=== PATIENT | female | born 1970 | race Caucasian/White ===

== ENCOUNTER 2020-03-24 09:42 | Outpatient (CLI) | payer BC, SELFPAY ==
--- NOTE | 2020-03-24 11:30 | NEURO_ITS ---
Patient Number: [id number] Impression: # Complains of numbness of hands and right elbow pain. # Severe right Carpal Tunnel Syndrome. # Moderate left Carpal Tunnel Syndrome. # Mild right ulnar neuropathy across the elbow. # Normal needle/EMG exam. Nerve Conduction Studies Anti Sensory Summary Table Stim Site NR Peak (ms) P-T Amp (?V) Site1 Site2 Delta-P (ms) Dist (cm) Manpreet (m/s) Left Median Anti Sensory (2-3nd Digit) Wrist 4.1 26.5 Wrist 2-3nd Digit 4.1 14.0 34 Wrist 4.6 31.2 Wrist 2-3nd Digit 4.1 14.0 34 Right Median Anti Sensory (2-3nd Digit) Wrist 6.0 19.5 Wrist 2-3nd Digit 6.0 14.0 23 Wrist 6.0 23.8 Wrist 2-3nd Digit 6.0 14.0 23 Left Radial Anti Sensory (Base 1st Digit) Wrist 2.1 24.7 Wrist Base 1st Digit 2.1 0.0 Right Radial Anti Sensory (Base 1st Digit) Wrist 2.1 28.2 Wrist Base 1st Digit 2.1 0.0 Left Ulnar Anti Sensory (5th Digit) Wrist 2.7 73.3 Wrist 5th Digit 2.7 14.0 52 Right Ulnar Anti Sensory (5th Digit) Wrist 2.4 30.0 Wrist 5th Digit 2.4 14.0 58 Motor Summary Table Stim Site NR Onset (ms) O-P Amp (mV) Site1 Site2 Delta-0 (ms) Dist (cm) Manpreet (m/s) Left Median Motor (Abd Poll Brev) Wrist 4.3 6.0 Elbow Wrist 5.2 28.0 54 Elbow 9.5 5.2 Right Median Motor (Abd Poll Brev) Wrist 7.0 3.9 Elbow Wrist 5.0 29.0 58 Elbow 12.0 3.5 Left Ulnar Motor (Abd Dig Minimi) Wrist 2.7 7.4 A Elbow Wrist 4.6 29.0 63 A Elbow 7.3 6.7 Right Ulnar Motor (Abd Dig Minimi) Wrist 2.5 6.3 A Elbow Wrist 5.1 28.0 55 A Elbow 7.6 5.5 F Wave Studies NR F-Lat (ms) L-R F-Lat (ms) Left Median (Mrkrs) (Abd Poll Brev) 28.19 3.80 Right Median (Mrkrs) (Abd Poll Brev) 31.99 3.80 Left Ulnar (Mrkrs) (Abd Dig Min) 27.54 0.00 Right Ulnar (Mrkrs) (Abd Dig Min) 27.54 0.00 EMG Side Muscle Nerve Root Ins Act Fibs Amp Dur Recrt Comment Right 1stDorInt Ulnar C8-T1 Nml Nml Nml Nml Nml Right Ext Indicis Radial (Post Int) C7-8 Nml Nml Nml Nml Nml Right Ext Digitorum Radial (Post Int) C7-8 Nml Nml Nml Nml Nml Right BrachioRad Radial C5-6 Nml Nml Nml Nml Nml Right PronatorTeres Median C6-7 Nml Nml Nml Nml Nml Right Abd Poll Brev Median C8-T1 Nml Nml Nml Nml Nml Left 1stDorInt Ulnar C8-T1 Nml Nml Nml Nml Nml Left Ext Indicis Radial (Post Int) C7-8 Nml Nml Nml Nml Nml Left Ext Digitorum Radial (Post Int) C7-8 Nml Nml Nml Nml Nml Left BrachioRad Radial C5-6 Nml Nml Nml Nml Nml Left PronatorTeres Median C6-7 Nml Nml Nml Nml Nml Left Abd Poll Brev Median C8-T1 Nml Nml Nml Nml Nml MTDD
== END 2020-03-24 09:43 | disposition home or self-care (01) ==
PROVIDERS: PCP Family Medicine; Visit Provider Physician Assistant
DX: R20.2 Paresthesia of skin (principal); G56.03 Carpal tunnel syndrome, bilateral upper limbs; G56.21 Lesion of ulnar nerve, right upper limb
CPT/HCPCS: 95886; 95911

== ENCOUNTER 2020-05-24 07:28 | Outpatient (CLI) | payer BC, SELFPAY ==
--- NOTE | 2020-05-24 | ECG_ITS ---
Measurements Intervals [place] Rate: 59 P: 70 VT: 177 QRS: 12 QRSD: 77 T: 14 QT: 425 QTc: 423 Interpretive Statements SINUS BRADYCARDIA RSR' IN V1 OR V2, PROBABLY NORMAL VARIANT LOW QRS VOLTAGE IN LIMB LEADS DELAYED PRECORDIAL R/S TRANSITION BORDERLINE ST-T WAVE ABNORMALITY- ANTEROLAT/INF LEADS BASELINE ARTIFACT- V4-V6 BORDERLINE ECG Electronically Signed On 05-24-2020 8:37:09 CDT by Turner Quijano D.O.
== END 2020-05-24 07:29 | disposition home or self-care (01) ==
LOC: ANHCARD 07:31
PROVIDERS: PCP Family Medicine; Visit Provider Anesthesiology
DX: I47.1 Supraventricular tachycardia (principal); R94.31 Abnormal electrocardiogram [ECG] [EKG]
CPT/HCPCS: 93005

== ENCOUNTER 2020-05-26 00:36 | Outpatient (CLI) | payer BC, SELFPAY ==
[2020-05-26 18:07] LABS: SARS-CoV-2 RNA PCR Negative
== END 2020-05-26 00:37 | disposition home or self-care (01) ==
LOC: ANHSURGERY 00:37
PROVIDERS: PCP Family Medicine; Visit Provider Orthopaedic Surgery
DX: Z01.812 Encounter for preprocedural laboratory examination (principal); Z11.59 Encounter for screening for other viral diseases
CPT/HCPCS: 87635; C9803; U0003

== ENCOUNTER 2020-05-28 01:19 | Day surgery (SDC) | payer BC, SELFPAY ==
[2020-05-17 16:45] VITALS: BMI 27.8
--- NOTE | 2020-05-27 12:46 | WPDANESEPPF ---
Anes - Initial Pre Proc Eval Procedure: Operation Date: 05/28/20 08:15 Proposed Procedures p Right Carpal Tunnel Release, Right Cubital Decompression - Sukhwinder Stanley MD Date/Time: 05/27/20 12:46 Surgeon: Sukhwinder Stanley MD Pre Op Diagnosis: Right Carpal Tunnel Syndrome, ulnar neuropathy Patient Data Age: 49 Gender: F Height: 5 ft 5 in Weight: 76 kg Allergies Allergy/AdvReac Type Severity Reaction Status Date / Time azithromycin Allergy Severe Swelling Verified 05/28/20 06:48 mold Allergy Unknown Unknown Verified 05/28/20 06:48 thyme Allergy Unknown Unknown Verified 05/28/20 06:48 COCONUT Allergy Severe Swelling, Uncoded 05/28/20 06:48 HIVES THYME (THE SPICE) Allergy Unknown HIVES, Uncoded 05/28/20 06:48 RASH, NAUSEA, DIARRHEA Home Medications Medication Instructions Recorded Confirmed Type sertraline 50 mg tablet 75 mg PO DAILY #45 tablet 03/10/20 05/28/20 Rx fluticasone propionate 110 1 puff INHALATION Q12H #12 gm 05/18/20 05/28/20 Rx mcg/actuation HFA aerosol inhaler Patient hx anesthesia problems: none Family hx anesthesia problems: none PMFSH Social History Social History Smoking status: Never smoker Alcohol intake: never Living arrangements: alone Spiritual care concerns: No Anes - Eval Final PreProcedure Day of Procedure 05/27/20 12:46 Patient weight: normal Heart: regular rate and rhythm Lungs: clear to auscultation Airway: Mallampati scale class III Neurological: alert and oriented Last oral intake: >/= 8 hours ASA classification: II Emergent: no Anesthetic plan: proceed Anesthesia type and monitoring: general LMA and standard monitoring Informed Consent: The patient's anesthetic plan and its attendant risks and benefits were discussed with the patient/family/POA. Questions were solicited and answers provided to the satisfaction of the patient/family/POA.
[2020-05-28] VITALS (12 sets, daily range): BP systolic 93–137; BP diastolic 51–80; PULSE 57–74; RESP 9–16; TEMP 36.1–36.9; O2SAT 97–100
[2020-05-28] MEDS: LACTATED RINGERS 1,000 ML 30 ML IV CONT ×2 (07:05→09:00)
[2020-05-28] MEDS: KETOROLAC 15 MG/ML VIAL (*BKC) IV PUSH (07:06)
--- NOTE | 2020-05-28 07:06 | WPDHPUPDATE1 ---
History and Physical Update Update Date/Time: 05/28/20 07:06 History and Physical has been reviewed, including an updated exam of the patient. There are NO changes in the patient's condition. Risks, benefits, and alternatives have been discussed and questions answered. Patient agrees to proceed with procedure.
[2020-05-28] MEDS: ACETAMINOPHEN 500 MG TABLET 1000 MG PO (07:07)
[2020-05-28] MEDS: ONDANSETRON INJ 4 MG/2 ML VIAL IV PUSH (07:28)
[2020-05-28] MEDS: SCOPOLAMINE 1.5 MG PATCH TRANSDERM (07:28)
[2020-05-28] MEDS: BUPIVACAINE/EPINEPHRINE 0.5% 10 ML VIAL 20 ML INFILTRATE (07:44)
[2020-05-28] MEDS: ceFAZolin 2 GM/D5W 50 ML 2 GM/50 ML BAG IVPB (07:55)
--- NOTE | 2020-05-28 09:21 | PM.PROC ---
Procedure Note - Detailed Date of procedure: 05/28/20 Pre-op diagnosis: Right Carpal Tunnel Syndrome, ulnar neuropathy Post-op diagnosis: same Procedure performed: 1. Carpal Tunnel Release 2. Ulnar nerve decompression at the elbow. Anesthesia: MAC Surgeon: Sukhwinder Stanley MD Estimated blood loss (mL): 1 Complications: None Condition: stable Findings: Operative details. After sedation was administer, the hand was prepped and draped in the usual sterile fashion. The proposed incision was marked using typical anatomic landmarks. 4ML 0.5% Marcaine with epinephrine was injected along the incision line and at the distal forearm. The limb was exsanguinated and the tourniquet inflated to 250 millimeters of mercury. A longitudinal incision was taken sharply. Dissection was brought down to the transverse carpal ligament. Under direct vision the ligament was incised sharply. The proximal release was carried out with dissection scissors. The contents of the carpal canal were protected with a [place] elevator. The transverse carpal ligament was confirmed to be widely patent. Attention was turned to the elbow. A longitudinal incision was created posterior to the medial epicondyle. Careful dissection was brought down to the ulnar nerve. It was identified proximally and dissected to the cubital tunnel retinaculum. Careful dissection released the cubital tunnel retinaculum. The dissection was carried out to the flexor carpi the palmaris. The 1st motor branch was carefully identified and protected. Attention was turned proximally in the nerve was released proximal to the intermuscular septum. The arm was flexed and the nerve was assessed. The nerve was stable. The tourniquet was released to assure that there was no significant bleeding. Meticulous hemostasis was maintained. The subcutaneous tissues were closed with 2-0 Vicryl suture. The skin was closed with interrupted 3-0 Monocryl suture followed by running 4-0 Monocryl suture and Steri-Strips. Sterile dressing was applied with a soft splint at the wrist and a hard splint at the elbow. The patient was extubated and brought to the recovery room in stable condition.
== END 2020-05-28 12:40 | disposition home or self-care (01) ==
PROVIDERS: PCP Family Medicine; Visit Provider Orthopaedic Surgery
PROC: (CPT 64721; principal; 2020-05-28 08:15)
DX: G56.01 Carpal tunnel syndrome, right upper limb (principal); G56.21 Lesion of ulnar nerve, right upper limb
CPT/HCPCS: 64721; 64718; 87635; A4565; A9270; C9803; J0690; J1100; J1885; J2250; J2405; J2704; J3010; J7120; U0003

== ENCOUNTER 2021-01-28 14:48 | Outpatient (CLI) | payer BC, SELFPAY | END 2021-01-28 14:49 | disposition home or self-care (01) | LOC: ANHCOVIDVC 14:48 | PROVIDERS: PCP Family Medicine | DX: Z23 Encounter for immunization (principal) | CPT/HCPCS: 0001A; 91300 ==

== ENCOUNTER → 2021-03-23 08:32 | Outpatient (CLI) | payer BC, SELFPAY ==
[2021-03-23 20:20] LABS: SARS-CoV-2 RNA PCR Positive
== END ==
PROVIDERS: PCP Family Medicine; Visit Provider Family Medicine
DX: U07.1 COVID-19 (principal)
CPT/HCPCS: C9803; U0003; U0005

== ENCOUNTER 2022-01-12 07:32 | Outpatient (CLI) | payer OTHER, SELFPAY ==
[2022-01-12 07:50] LABS: Basophils Percent Auto 0.6 % (0.2-1.2); Eosinophils Absolute Auto 0.2 K/mm3 (0-0.3); Eosinophils Percent Auto 3.6 % (0-4.4); Hematocrit 40.8 % (37.0-47.0); Hemoglobin 13.3 g/dL (12.0-15.0); Immature Granulocyte Absolute 0.02 K/mm3 (0.00-0.031); Immature Granulocyte Percent A 0.3 % (0-0.5); Lymphocytes Absolute Auto 1.93 K/mm3 (0.9-3.2); Lymphocytes Percent Auto 28.8 % (18.3-44.2); Mean Corpuscular HGB Conc 32.6 g/dl (32-36); Mean Corpuscular Hemoglobin 28.2 pg (26-34); Mean Corpuscular Volume 86.6 fl (80-100); Mean Platelet Volume 9.4 fl (7.4-10.4); Monocytes Absolute Auto 0.5 K/mm3 (0.1-0.6); Monocytes Percent Auto 7.5 % (2.6-8.5); Neutrophils Percent Auto 59.2 % (45.5-73.1); Platelet Count Result 261 k/mm3 (150-375); Red Blood Count 4.71 M/mm3 (4.2-5.4); Red Cell Distribution Width 12.6 % (11.5-14.5); White Blood Count 6.7 K/mm3 (4.5-10.0)
[2022-01-12 07:57] LABS: Add Urine Microscopic? NO; Appearance Urine Clear (Clear); Bilirubin Urine Negative (Negative); Blood Urine Negative (Negative); Color Urine Yellow (Yellow); Glucose Urine UA Negative (Negative); Ketones Urine Negative (Negative); Leukocyte Esterase Ur Negative LEU/UL (NEGATIVE); Nitrate Urine Negative (Negative); Protein Urine Negative (Negative); Urobilinogen Urine Negative mg/dL (<2.0)
[2022-01-12 08:15] LABS: Alanine Aminotransferase 17 U/L (4-35); Albumin Level 4.2 g/dL (3.5-5.1); Alkaline Phosphatase 80 U/L (38-126); Anion Gap 5 mmol/L (8-16); Aspartate Amino Transferase 24 U/L (14-36); Bilirubin,Total 0.8 mg/dL (0.2-1.3); Blood Urea Nitrogen 14 mg/dL (7-17); Calcium 8.7 mg/dL (8.4-10.2); Carbon Dioxide 26 mmol/L (22-30); Chloride 104 mmol/L (98-107); Cholesterol 220 mg/dL (0-200); Estimated Glomerular Filt Rate > 60; Glucose 103 mg/dL (65-110); HDL Direct 79 mg/dL; Sodium 135 mmol/L (137-145); Triglycerides 109 mg/dL (<150)
[2022-01-12 08:23] LABS: Hemoglobin A1C 5.5 % (<5.7)
[2022-01-12 08:26] LABS: LDL Cholesterol Direct 104 mg/dL
== END 2022-01-12 07:33 | disposition home or self-care (01) ==
LOC: ANHLAB 07:34
PROVIDERS: PCP Family Medicine; Visit Provider Nurse Practitioner Family
DX: Z00.00 Encounter for general adult medical examination without abnormal findings (principal); E55.9 Vitamin D deficiency, unspecified; R20.0 Anesthesia of skin; R20.2 Paresthesia of skin; R73.01 Impaired fasting glucose; N39.0 Urinary tract infection, site not specified; E78.2 Mixed hyperlipidemia
CPT/HCPCS: 36415; 80053; 80061; 81003; 82306; 83036; 84443; 85025

== ENCOUNTER 2023-01-08 11:04 | Day surgery (SDC) | payer OTHER, SELFPAY ==
[2022-12-15 10:19] VITALS: BMI 29.1
[2022-12-26 10:30] VITALS: BMI 28.2
--- NOTE | 2023-01-08 07:12 | WPDANESEPPF ---
Anes - Initial Pre Proc Eval Procedure: Operation Date: 01/08/23 13:00 Proposed Procedures p Screening Colonoscopy - Nahun Cole MD Date/Time: 01/08/23 07:12 Surgeon: Nahun Cole MD Pre Op Diagnosis: Neoplasm Screening Patient Data Age: 52 Gender: F Height: 1.65 m Weight: 77 kg Allergies Allergy/AdvReac Type Severity Reaction Status Date / Time azithromycin Allergy Severe Swelling Verified 01/08/23 11:24 of Lip/Tongue/Throat mold Allergy Intermediate SINUS Verified 01/08/23 11:24 COCONUT Allergy Severe Anaphylactic Uncoded 01/08/23 11:24 Shock THYME (THE SPICE) Allergy Severe Anaphylactic Uncoded 01/08/23 11:24 Shock Home Medications Medication Instructions Recorded Confirmed Type fluticasone propionate 50 2 spray intranasal DAILY 06/13/21 01/08/23 History mcg/actuation nasal spray,suspension sertraline 50 mg tablet 50 mg PO DAILY #90 tabs 08/10/22 01/08/23 Rx albuterol sulfate 90 mcg/actuation 1 puff inhalation Q4-6H PRN 10/24/22 01/08/23 Rx aerosol inhaler shortness of breath or wheezing #8.5 grams sodium,potassium,mag sulfates 17.5 See Rx Instructions PO .COMPLEX 12/15/22 01/08/23 Rx gram-3.13 gram-1.6 gram oral soln #354 mL (Suprep Bowel Prep Kit) estradiol 2 mg tablet 2 mg PO DAILY 12/26/22 01/08/23 History sodium,potassium,mag sulfates 17.5 See Rx Instructions PO .COMPLEX 12/26/22 01/08/23 Rx gram-3.13 gram-1.6 gram oral soln #354 mL (Suprep Bowel Prep Kit) Patient hx anesthesia problems: none Family hx anesthesia problems: none Results Review: All pre-operative results and documents have been reviewed as part of the pre-operative evaluation. [facility] Past Medical History Medical History (Updated 01/08/23 @ 07:13 by Andreas Harper DO) Anxiety Asthma Bilateral carpal tunnel syndrome Bunion, right foot Endometriosis GERD (gastroesophageal reflux disease) Numbness and tingling in right hand SVT (supraventricular tachycardia) Ulnar neuropathy at elbow of right upper extremity Wellness examination Surgical History Surgical History History of hysterectomy (~2011) Family History Family History Sibling Hypertension Family history of diabetes mellitus in first degree relative Mother Carcinoma of colon Father Diabetes mellitus Social History Social History Social History: Single Smoking status: Never smoker Second hand tobacco smoke exposure: No Alcohol intake: current Substance use: never Substance use type: does not use Living arrangements: with family Occupation/Education: occupation Gender identity (if verbalized by the patient): Female Sexual Orientation (if Verbalized by the Patient): Straight or Heterosexual Spiritual care concerns: No Anes - Eval Final PreProcedure Day of Procedure 01/08/23 07:12 Patient weight: overweight Heart: regular rate and rhythm Lungs: clear to auscultation Airway: Mallampati scale class II Neurological: alert and oriented Last oral intake: >/= 8 hours ASA classification: III Emergent: no Anesthetic plan: proceed Anesthesia type and monitoring: general GIVS and standard monitoring Results Review: All pre-operative results and documents have been reviewed as part of the pre-operative evaluation. Informed Consent: The patient's anesthetic plan and its attendant risks and benefits were discussed with the patient/family/POA. Questions were solicited and answers provided to the satisfaction of the patient/family/POA.
[2023-01-08 11:31] VITALS: BP 132/76; PULSE 64; RESP 20; TEMP 36.8; O2SAT 98
--- NOTE | 2023-01-08 11:38 | PM.HPGS ---
History of Present Illness History of Present Illness Consent: Risks, benefits, and alternatives have been discussed and questions answered. Patient agrees to proceed with procedure. Chief complaint: Family history of colon cancer Narrative: Priscilla Silverman is a 52 year old female Presents for screening colonoscopy. Patient's current weight appetite and bowel movements are normal. Patient denies abdominal pain. She has had no bleeding. Family history is significant her mother had colon cancer. Review of Systems Review of Systems: Review of systems noncontributory. [facility] Past Medical History Medical History (Updated 01/08/23 @ 11:40 by Nahun Cole MD) Anxiety Asthma Bilateral carpal tunnel syndrome Bunion, right foot Endometriosis GERD (gastroesophageal reflux disease) Numbness and tingling in right hand SVT (supraventricular tachycardia) Ulnar neuropathy at elbow of right upper extremity Wellness examination Surgical History Surgical History History of hysterectomy (~2011) Family History Family History Sibling Hypertension Family history of diabetes mellitus in first degree relative Mother Carcinoma of colon Father Diabetes mellitus Social History Social History Social History: Single Smoking status: Never smoker Second hand tobacco smoke exposure: No Alcohol intake: current Substance use: never Substance use type: does not use Living arrangements: with family Occupation/Education: occupation Gender identity (if verbalized by the patient): Female Sexual Orientation (if Verbalized by the Patient): Straight or Heterosexual Spiritual care concerns: No Meds Home Medications and Allergies Home Medications Medication Instructions Recorded Confirmed Type fluticasone propionate 50 2 spray intranasal DAILY 06/13/21 01/08/23 History mcg/actuation nasal spray,suspension sertraline 50 mg tablet 50 mg PO DAILY #90 tabs 08/10/22 01/08/23 Rx albuterol sulfate 90 mcg/actuation 1 puff inhalation Q4-6H PRN 10/24/22 01/08/23 Rx aerosol inhaler shortness of breath or wheezing #8.5 grams sodium,potassium,mag sulfates 17.5 See Rx Instructions PO .COMPLEX 12/15/22 01/08/23 Rx gram-3.13 gram-1.6 gram oral soln #354 mL (Suprep Bowel Prep Kit) estradiol 2 mg tablet 2 mg PO DAILY 12/26/22 01/08/23 History sodium,potassium,mag sulfates 17.5 See Rx Instructions PO .COMPLEX 12/26/22 01/08/23 Rx gram-3.13 gram-1.6 gram oral soln #354 mL (Suprep Bowel Prep Kit) Allergies Allergy/AdvReac Type Severity Reaction Status Date / Time azithromycin Allergy Severe Swelling Verified 01/08/23 11:24 of Lip/Tongue/Throat mold Allergy Intermediate SINUS Verified 01/08/23 11:24 COCONUT Allergy Severe Anaphylactic Uncoded 01/08/23 11:24 Shock THYME (THE SPICE) Allergy Severe Anaphylactic Uncoded 01/08/23 11:24 Shock Vital Signs Vital Signs - 24 hr 01/08/23 11:31 Temperature 98.3 F Pulse Rate 64 Respiratory Rate 20 Blood Pressure 132/76 Pulse Oximetry 98 Oxygen Delivery Room Air Exam Narrative: Physical exam reveals patient to be alert. Vital signs stable. HEENT exam is unremarkable. Patient is anicteric. Lungs are clear to auscultation and percussion. Heart is without murmur or extra sounds. Abdomen bowel sounds are present soft nontender with no organomegaly. Digital external rectal exam is normal. Assessment and Plan Assessment and plan (1) Family history of colon cancer in mother: Code(s): Z80.0 - Family history of malignant neoplasm of digestive organs Status: Acute Assessment and Plan: Patient's mother had colon cancer. Plan for surveillance colonoscopy now consider this a 5 year intervals in the future.
[2023-01-08] MEDS: LACTATED RINGERS 1,000 ML 150 ML IV CONT (11:41)
[2023-01-08 12:00] VITALS: BP 136/78; PULSE 85; RESP 18; O2SAT 99
[2023-01-08 12:10] VITALS: BP 118/81; PULSE 66; RESP 17; O2SAT 99
[2023-01-08 12:20] VITALS: BP 134/81; PULSE 59; RESP 18; O2SAT 98
--- NOTE | 2023-01-08 13:25 | WPDANESPN ---
Anes - Prog Note Post-Op Date/Time: 01/08/23 13:25 Cardiovascular status: normal Respiratory status: normal Airway patency: baseline Mental status: baseline Post-Op hydration status: normal Vital Signs: Last Vital Signs Temp 36.8 C 01/08/23 11:31 Pulse 59 L 01/08/23 12:20 Resp 18 01/08/23 12:20 BP 134/81 01/08/23 12:20 Pulse Ox 98 01/08/23 12:20 O2 Del Method Room Air 01/08/23 12:20 Pain Score (VAS): 0 I/O: Intake & Output 01/07/23 01/08/23 01/08/23 23:59 07:59 15:59 Intake Total 400 Balance 400 Post-procedural complaints: none Patient Feedback: Patient satisfied with anesthetic care. Other Findings: Patient vital signs back to baseline. Patient denies nausea and vomiting. Patient's pain under control. Patient OK for discharge.
== END 2023-01-08 13:00 | disposition home or self-care (01) ==
PROVIDERS: PCP Family Medicine; Visit Provider Internal Medicine Gastroenterology
PROC: 0DJD8ZZ Inspection of Lower Intestinal Tract, Via Natural or Artificial Opening Endoscopic (ICD-10-PCS; CPT 45378; principal; 2023-01-08 13:00)
DX: Z80.0 Family history of malignant neoplasm of digestive organs (principal)
CPT/HCPCS: 45378

== ENCOUNTER 2023-05-07 07:09 | Outpatient (CLI) | payer OTHER, SELFPAY ==
[2023-05-07 07:42] LABS: Hematocrit 39.7 % (37.0-47.0); Mean Corpuscular HGB Conc 32.7 g/dl (32-36); Mean Corpuscular Hemoglobin 28.3 pg (26-34); Mean Corpuscular Volume 86.3 fl (80-100); Mean Platelet Volume 9.6 fl (7.4-10.4); Platelet Count Result 263 k/mm3 (150-375); Red Cell Distribution Width 12.3 % (11.5-14.5); White Blood Count 6.7 K/mm3 (4.5-10.0)
[2023-05-07 07:51] LABS: Appearance Urine Clear (Clear); Bacteria Urine 1+ /hpf; Bilirubin Urine Negative (Negative); Color Urine Yellow (Yellow); Glucose Urine UA Negative (Negative); Ketones Urine Negative (Negative); Leukocyte Esterase Ur Negative LEU/UL (NEGATIVE); Nitrate Urine Negative (Negative); Non Pathogenic Casts 0-2; Protein Urine Negative (Negative); RBC Urine 0-2 /hpf (0-2); Squamous Epithelial Cell Urine Few /hpf (Few); Urobilinogen Urine 0.2 mg/dL (<2.0); WBC Urine 0-5 /hpf (0-3); pH Urine 5.5 (5.0-9.0)
[2023-05-07 07:55] LABS: Alanine Aminotransferase 20 U/L (6-35); Albumin Level 4.2 g/dL (3.5-5.1); Alkaline Phosphatase 72 U/L (38-126); Anion Gap 4 mmol/L (8-16); Aspartate Amino Transferase 23 U/L (14-36); Bilirubin,Total 0.7 mg/dL (0.2-1.3); Blood Urea Nitrogen 15 mg/dL (7-17); Calcium 8.5 mg/dL (8.4-10.2); Carbon Dioxide 29 mmol/L (22-30); Chloride 105 mmol/L (98-107); Cholesterol 209 mg/dL (0-200); Estimated Glomerular Filt Rate > 60; Glucose 93 mg/dL (65-110); HDL Direct 79 mg/dL; Potassium 3.9 mmol/L (3.4-5.0); Sodium 138 mmol/L (137-145); Triglycerides 114 mg/dL (<150)
[2023-05-07 08:01] LABS: Add Urine Microscopic? YES
[2023-05-07 08:07] LABS: LDL Cholesterol Direct 97 mg/dL
[2023-05-07 08:32] LABS: Vitamin D 25 Hydroxy 29.4 ng/mL
[2023-05-07 08:33] LABS: Hemoglobin A1C 5.3 % (<5.7)
== END 2023-05-07 07:10 | disposition home or self-care (01) ==
LOC: ANHLAB 07:11
PROVIDERS: PCP Family Medicine; Visit Provider Physician Assistant
DX: Z00.00 Encounter for general adult medical examination without abnormal findings (principal); F41.1 Generalized anxiety disorder; I47.1 Supraventricular tachycardia; J45.20 Mild intermittent asthma, uncomplicated; R73.01 Impaired fasting glucose
CPT/HCPCS: 36415; 80053; 80061; 81001; 82306; 83036; 84443; 85027

== ENCOUNTER 2023-09-18 15:45 | Emergency (ER) | payer OTHER, SELFPAY ==
[2023-09-18 15:50] VITALS: BP 139/87; PULSE 64; RESP 20; TEMP 36.6; O2SAT 97
--- NOTE | 2023-09-18 15:55 | ED.URI ---
HPI - URI/Sore Throat General Chief Complaint: Upper Respiratory Infection Stated Complaint: sore throat Source: patient and RN notes reviewed History of Present Illness HPI Narrative: 52 yo F presents to urgent care with complaints of a sore throat x 3 days. Pt states she has also had some fullness in her ears and a slight cough. Denies any fevers, chills, chest pain, SOB, N/V/D. Related Data Home Medications Medication Instructions Recorded Confirmed estradiol 2 mg tablet 2 mg PO DAILY 12/26/22 09/18/23 Allergies Allergy/AdvReac Type Severity Reaction Status Date / Time azithromycin Allergy Severe Swelling Verified 09/18/23 15:59 of Lip/Tongue/Throat mold Allergy Intermediate SINUS Verified 09/18/23 15:59 COCONUT Allergy Severe Anaphylactic Uncoded 02/08/23 10:31 Shock THYME (THE SPICE) Allergy Severe Anaphylactic Uncoded 02/08/23 10:31 Shock Review of Systems Review of Systems: CONSTITUTIONAL: Denies fever, chills, or sweats. EYES: Denies visual changes, redness, or discharge. ENT: sore throat and bilateral ear fullness CARDIOVASCULAR: Denies chest pain, palpitations, or edema. RESPIRATORY: slight cough GASTROINTESTINAL: Denies abdominal pain, nausea, vomiting, or diarrhea. GENITOURINARY: Denies dysuria or hematuria. SKIN: Denies rash or itching. MUSCULOSKELETAL: Denies back pain, joint pain, or myalgia. NEUROLOGIC: Denies headache, numbness, or weakness. Pertinent positives per HPI. [facility] Past Medical History Medical History Anxiety Asthma Bilateral carpal tunnel syndrome Bunion, right foot Endometriosis GERD (gastroesophageal reflux disease) Numbness and tingling in right hand SVT (supraventricular tachycardia) Ulnar neuropathy at elbow of right upper extremity Wellness examination Surgical History Surgical History History of hysterectomy (~2011) Family History Family History Sibling Hypertension Family history of diabetes mellitus in first degree relative Mother Carcinoma of colon Father Diabetes mellitus Social History Social History Social History: Single Smoking status: Never smoker Second hand tobacco smoke exposure: No Alcohol intake: current Substance use: never Substance use type: does not use Living arrangements: with family Occupation/Education: occupation Gender identity (if verbalized by the patient): Female Sexual Orientation (if Verbalized by the Patient): Straight or Heterosexual Spiritual care concerns: No Comments At the time of my signature, I reviewed and agree with the nursing past medical, surgical, social, and family history. There is no relevant family history pertinent to the patient complaint. Exam Narrative: GENERAL: This is a well-nourished, well-developed patient, in no apparent distress. HEAD: normocephalic, atraumatic. EYES: Sclera clear/white. Vision is grossly intact. EARS: External ears normal, auditory canals clear and without drainage, TMs normal without perforation. Hearing grossly intact. NOSE: External nose normal with no obvious nasal discharge, nares without redness, no rhinorrhea. THROAT: Mucous membranes moist, posterior pharynx clear. NECK: Neck supple, non-tender without lymphadenopathy, masses or thyromegaly. CARDIOVASCULAR: Regular rate and rhythm without murmurs, gallops, or rubs. RESPIRATORY: Clear to auscultation. Breath sounds equal bilaterally. No wheezes, rales, or rhonchi. SKIN: warm, intact with no suspicious lesions or rash, good texture and turgor. NEURO: awake, alert, and oriented to person, place and time. There were no obvious focal neurologic abnormalities. EXTREMITIES: No clubbing, cyanosis, or edema. No joint tenderness, effusion, or edema noted. BACK: No
== END 2023-09-18 16:15 | disposition home or self-care (01) ==
PROVIDERS: Emergency Provider Nurse Practitioner Family; PCP Family Medicine
DX: J06.9 Acute upper respiratory infection, unspecified (principal); J45.909 Unspecified asthma, uncomplicated; N80.9 Endometriosis, unspecified; K21.9 Gastro-esophageal reflux disease without esophagitis; F41.9 Anxiety disorder, unspecified
CPT/HCPCS: 87081; 87880; 99213; G0463